=== PATIENT | female | born 1965 | race Caucasian/White ===

== ENCOUNTER → 2016-09-21 | Outpatient (CLI) | payer BC ==
[~2016-09-21] MED LIST: CPR500T PO; DICY20TA57 PO; DOCU100C37 PO; HYDR-3816 PO; IBP800T PO; IBUP-1773 PO; LACT1CAP8 PO; SIME80TA16 PO; Throat Lozenges MT
--- NOTE | 2016-09-21 13:22 | Diagnostic Imaging Report ---
PROCEDURE: CT sinuses without contrast TECHNIQUE: Multiple contiguous axial images were obtained through the sinuses without the use of intravenous contrast. Coronal and sagittal reformations were then performed. INDICATION: Congestion. Pressure. FINDINGS: There is opacification of the posterior left ethmoidal air cells. Partial opacification in the mid ethmoidal air cells is also seen bilaterally. There is mild mucosal thickening in the left maxillary sinus with a small fluid level. There is also mucosal thickening obliterating the ostiomeatal complex bilaterally. The sphenoidal sinuses demonstrate moderate mucosal thickening of the left and minimal mucosal thickening of the right side The frontal sinuses appear clear. The mastoid air cells and middle ear cavities appear clear. There is a moderate mucosal thickening seen in the left nasal cavity, particularly along the left inferior turbinate narrowing the nasal passages on the left side. IMPRESSION: Sinusitis. Dictated by: Dictated on workstation # [id number]
== END ==
LOC: RAD 07:37
PROVIDERS: ATTEND Internal Medicine
DX: J01.80 Other acute sinusitis (principal)
CPT/HCPCS: 70486

== ENCOUNTER → 2021-06-24 | Outpatient (CLI) | payer BC ==
[~2021-06-24] MED LIST changes: +HYDR-34 PO; -HYDR-3816 PO
--- NOTE | 2021-06-24 11:31 | Diagnostic Imaging Report ---
INDICATION: Routine screening. No prior mammograms are available for comparison. Both breasts are heterogeneously dense, limiting the sensitivity of mammography. No dominant mass or malignant-appearing microcalcifications are seen. There are benign calcifications bilaterally. Axillae are unremarkable. IMPRESSION: BI-RADS Category 2 No mammographic features suspicious for malignancy are identified. ACR BI-RADS Category 2: Benign findings. Result letter will be mailed to the patient. Note: At least 10% of breast cancer is not imaged by mammography. Dictated by: Dictated on workstation # [id number]
== END ==
LOC: RAD 07:30
PROVIDERS: ATTEND Family Medicine
DX: Z12.31 Encounter for screening mammogram for malignant neoplasm of breast (principal)
CPT/HCPCS: 77063; 77067